=== PATIENT | male | born 1990 | race African-American/Black ===

== ENCOUNTER 2020-05-25 18:01 | Emergency (ER) | payer MEDICAID ==
[~2020-05-25] VITALS: Ht 167.6 cm; Wt 86.0 kg
[2020-05-25] MEDS ORDERED: IBUPROFEN 600MG TABLET PO STA (18:16)
[2020-05-25 20:05] VITALS: BP 118/86
== END 2020-05-25 20:26 | disposition home or self-care (01) ==
LOC: ER 18:01
DX: S60.222A Contusion of left hand, initial encounter (principal); S60.212A Contusion of left wrist, initial encounter; V49.49XA Driver injured in collision with other motor vehicles in traffic accident, initial encounter; Y93.89 Activity, other specified; Y92.89 Other specified places as the place of occurrence of the external cause; Y99.8 Other external cause status; M25.552 Pain in left hip
CPT/HCPCS: 73110; 73130; 99284